=== PATIENT | male | born 1935 | race Two or more races ===

== ENCOUNTER 2018-01-15 09:13 | Day surgery (SDC) | payer MEDICARE, OTHER ==
--- NOTE | 2018-01-11 16:06 | Pre-Procedure Note/Attestation ---
Pre-Procedure Note/Attestation Complete Prior to Procedure Planned Procedure: right Procedure Narrative: 1. ANTERIOR VITRECTOMY, RIGHT EYE. 2.IOL EXCHANGE, RIGHT EYE. Indications for Procedure Pre-Operative Diagnosis: 1. VITREOUS PROLAPSE , RIGHT EYE. 2. IOL SUBLUXATION , RIGHT EYE. Attestation I attest that I discussed the nature of the procedure; its benefits; risks and complications; and alternatives (and the risks and benefits of such alternatives ), prior to the procedure, with the patient (or the patient's legal counter sales representative). I attest that, if there was a reasonable possibility of needing a blood transfusion, the patient (or the patient's legal counter sales representative) was given the [place] [employer] [facility] standardized written summary, pursuant to the Salazar Abdulaziz Blood Safety Act ([place] Health and Safety Code # 1645, as amended). I attest that I re-evaluated the patient just prior to the surgery and that there has been no change in the patient's H&P, except as documented below: Abhishek Whitt MD Jan 11, 2018 16:06
[2018-01-15] VITALS (9 sets, daily range): BP systolic 125–147; BP diastolic 71–87
[~2018-01-15] VITALS: Ht 182.9 cm; Wt 90.3 kg
[~2018-01-15 09:13] MED LIST: BSS 15ml BTL ONE; BSS 500ml btl ONE; Dexamethasone 4mg/ml vial ONE; EPINEPHrine 1mg/1ml Amp ONE; Lidocaine 1% MPF 10mg/ml 5ml ONE; Povidone-Iodine 5% opth solution ONE; Sodium Hyaluronate 10 mg/ml 0.85ml ONE; Tetracaine 0.5% Opth 4ml Soln ONE; acetaZOLAMIDE 125mg tab ORAL ONE
[2018-01-15] MEDS ORDERED: Diclofenac Sod 0.1% Op Soln ONE (09:23)
[2018-01-15] MEDS ORDERED: Phenylephrine 10% Opth Soln 5ml ONE (09:23)
[2018-01-15] MEDS ORDERED: Vigamox Opth Soln 3ml ONE (09:23)
[2018-01-15] MEDS ORDERED: Akten 3.5% 1ml Btl ONE (09:23)
[2018-01-15] MEDS ORDERED: Tropicamide 1% Opth 15ml Soln ONE (09:31)
[2018-01-15] MEDS: Diclofenac Sod 0.1% Op Soln RIGHT EYE SCH ×3 (09:35→10:04)
[2018-01-15] MEDS: Vigamox Opth Soln 3ml RIGHT EYE SCH ×3 (09:35→10:05)
[2018-01-15] MEDS: Tropicamide 1% Opth 15ml Soln RIGHT EYE SCH ×3 (09:35→10:04)
[2018-01-15] MEDS: Phenylephrine 10% Opth Soln 5ml RIGHT EYE SCH ×3 (09:35→10:04)
[2018-01-15] MEDS: Akten 3.5% 1ml Btl RIGHT EYE SCH ×3 (09:35→10:04)
[2018-01-15 10:04] LABS: BASOPHILS % (AUTO) 0.4 % (0.0-2.0); EOSINOPHILS % (AUTO) 0.4 % (0.0-3.0); HEMATOCRIT 34.4 % (42.0-52.0); LYMPHOCYTES % (AUTO) 29.4 % (20.0-45.0); MEAN CORPUSCULAR VOLUME 89 FL (80-99); MONOCYTES % (AUTO) 6.4 % (1.0-10.0); NEUTROPHILS % (AUTO) 63.4 % (45.0-75.0); PLATELET COUNT 147 K/UL (150-450); RED BLOOD COUNT 3.86 M/UL (4.70-6.10); RED CELL DISTRIBUTION WIDTH 14.7 % (11.6-14.8); WHITE BLOOD COUNT 13.8 K/UL (4.8-10.8)
[2018-01-15 10:06] LABS: ANION GAP 10 mmol/L (5-15); BLOOD UREA NITROGEN 85 mg/dL (7-18); CALCIUM 9.3 MG/DL (8.5-10.1); CARBON DIOXIDE 27 MMOL/L (21-32); CHLORIDE 104 MMOL/L (98-107); CREATININE 3.3 MG/DL (0.55-1.30); POTASSIUM 4.2 MMOL/L (3.5-5.1); SODIUM 141 MMOL/L (136-145)
[2018-01-15] MEDS ORDERED: ATORVASTATIN CA40 MG ORAL (10:14)
[2018-01-15] MEDS ORDERED: ADALAT20 MG ORAL (10:14)
[2018-01-15] MEDS ORDERED: FUROSEMIDE40 MG ORAL (10:14)
[2018-01-15] MEDS ORDERED: LOSARTAN POTASS25 MG ORAL (10:14)
[2018-01-15] MEDS ORDERED: ALBUTEROL2.5 MG/3 M INH (10:14)
[2018-01-15] MEDS ORDERED: CARVEDILOL3.125 MG ORAL (10:14)
[2018-01-15] MEDS ORDERED: RENA-VITE TABL0.8 M1 PO (10:14)
[2018-01-15] MEDS ORDERED: TRAZODONE HCL100 MG ORAL (10:14)
[2018-01-15] MEDS ORDERED: TAMSULOSIN HCL0.4 MG ORAL (10:14)
--- NOTE | 2018-01-15 10:15 | Anethesia Preoperative Eval ---
Anesthesia Pre-op PMH/ROS General Date of Evaluation: Jan 15, 2018 Time of Evaluation: 10:40 Anesthesiologist: ASA Score: ASA 4 Mallampati Score Class I : Soft palate, uvula, fauces, pillars visible Class II: Soft palate, uvula, fauces visible Class III: Soft palate, base of uvula visible Class IV: Only hard plate visible Mallampati Classification: Class III Surgeon: stormy Allergies: Coded Allergies: No Known Allergies (Unverified , 01/11/18) Past Medical History Cardiovascular: Reports: HTN, DE, other - chf; Denies: CAD, valve dz, arrhythmia Pulmonary: Reports: COPD; Denies: asthma, EDISON, other Gastrointestinal/Genitourinary: Reports: CRI, ESRD Endocrine: Reports: DM HEENT: Reports: cataract (L), cataract (R) Hematology/Immune: Reports: anemia; Denies: DVT, bleeding disorder, other Other: obesity Anesthesia Pre-op Phys. Exam Physician Exam Last Vital Signs Date Time Temp Pulse Resp B/P (MAP) Pulse Ox O2 Delivery O2 Flow Rate FiO2 01/15/18 09:40 97.6 78 18 143/81 (101) 96 97.6 Constitutional: NAD Cardiovascular: RRR Respiratory: CTA Gastrointestinal: S/NT/ND Airway Exam Mallampati Score: Class III MO: full ROM: full Teeth: missing Dentures: no upper, no lower Anesthesia Pre-op A/P Labs Hematology Test 01/15/18 09:45 White Blood Count 13.8 K/UL (4.8-10.8) H Red Blood Count 3.86 M/UL (4.70-6.10) L Hemoglobin 11.0 G/DL (14.2-18.0) L Hematocrit 34.4 % (42.0-52.0) L Mean Corpuscular Volume 89 FL (80-99) Mean Corpuscular Hemoglobin 28.6 PG (27.0-31.0) Mean Corpuscular Hemoglobin Concent 32.1 G/DL (32.0-36.0) Red Cell Distribution Width 14.7 % (11.6-14.8) Platelet Count 147 K/UL (150-450) L Mean Platelet Volume 7.2 FL (6.5-10.1) Neutrophils (%) (Auto) 63.4 % (45.0-75.0) Lymphocytes (%) (Auto) 29.4 % (20.0-45.0) Monocytes (%) (Auto) 6.4 % (1.0-10.0) Eosinophils (%) (Auto) 0.4 % (0.0-3.0) Basophils (%) (Auto) 0.4 % (0.0-2.0) Chemistry Test 01/15/18 09:45 Sodium Level 141 MMOL/L (136-145) Potassium Level 4.2 MMOL/L (3.5-5.1) Chloride Level 104 MMOL/L (98-107) Carbon Dioxide Level 27 MMOL/L (21-32) Anion Gap 10 mmol/L (5-15) Blood Urea Nitrogen 85 mg/dL (7-18) H Creatinine 3.3 MG/DL (0.55-1.30) H Estimat Glomerular Filtration Rate mL/min (>60) Glucose Level 115 MG/DL (74-106) H Calcium Level 9.3 MG/DL (8.5-10.1) Risk Assessment & Plan Assessment: asa 4 Plan: MAC Status Change Before Surgery: No Pre-Antibiotics Drug: none Jocelyne Stewart M.D. Jan 15, 2018 10:15
[2018-01-15] MEDS ORDERED: IPRATROPIU0.2 MG/1 M HHN (10:21)
[2018-01-15] MEDS ORDERED: PREDNISONE20 MG ORAL (10:21)
[2018-01-15] MEDS ORDERED: Midazolam 2mg/2ml Inj ONE (10:25)
[2018-01-15] MEDS ORDERED: fentaNYL 100 mcg/2 mL IV ONE (10:26)
[2018-01-15] MEDS ORDERED: LR 1000ml ONE (11:00)
--- NOTE | 2018-01-15 11:19 | Discharge Summary ---
Discharge Summary Discharge Summary Discharge Summary DATE OF ADMISSION: 01/15/2018 DATE OF DISCHARGE: 01/15/2018 REASON FOR HOSPITALIZATION: 1- Vitreous prolaps, right eye 2- Dislocated IOL SURGERY PERFORMED: 1- Anterior vitrectomy 2- IOL repositioning, right eye CONDITION IN THE HOSPITAL:The patient tolerated the surgery without complications. DISCHARGE CONDITION: The patient was stable at discharge. DISCHARGE MEDICATIONS: 1. Vigamox eye drops one drop q.i.d, OD 2. Prednisolone one drop q.i.d, Od 3. Prolensa 1 drop qd ,OD POSTOPERATIVE ORDERS: The patient has to rest at home. No bending, No lifting, No watching Television tonight. POSTOPERATIVE FOLLOW UP: The patient will be followed in my office tomorrow morning at 7 o'clock. Abhishek Whitt MD Jan 15, 2018 11:19
[2018-01-15] MEDS ORDERED: LR 1000ml 1,000 ML IVLG SCH (11:23)
--- NOTE | 2018-01-15 11:24 | Brief Operative Note ---
Immediate Post Operative Note Operative Note Chief Complaint: Doble vision, difficulty driving and reading, right eye Pre-op Diagnosis: 1. VITREOUS PROLAPSE , RIGHT EYE. 2. IOL SUBLUXATION , RIGHT EYE. Procedure: 1- Anterior vitrectomy, right ey2- Anterior synachiotomy, right eye 3- IOL repositioning Post-op Diagnosis: same as pre-op Surgeon: Abhishek Whitt MD Clinical Informatics Spec: None Additional Surgeons: None Anesthesiologist: DR. Stewart Anesthesia: MAC Specimen: none Complications: none Condition: stable Fluids: 500ml Estimated Blood Loss: none Drains: none Implant(s) used?: Yes - The previous IOL was dislocated. After anterior vitrectomy the implant was securely repositioned Abhishek Whitt MD Jan 15, 2018 11:24
[2018-01-15] MEDS ORDERED: DiphenhydrAMINE 50mg/ml Inj IVP PRN (11:30)
[2018-01-15] MEDS ORDERED: fentaNYL 100 mcg/2 mL IV PRN (11:30)
--- NOTE | 2018-01-15 11:33 | Immediate Post-Op Evaluation ---
Immediate Post-Op Evalulation Immediate Post-Op Evalulation Procedure: right eye vitrectomy and lens repositioning Date of Evaluation: Jan 15, 2018 Time of Evaluation: 11:14 IV Fluids: LR 50ml Blood Products: 0 Estimated Blood Loss: 0 Urinary Output: 0 Blood Pressure Systolic: 131 Blood Pressure Diastolic: 88 Pulse Rate: 82 Respiratory Rate: 17 O2 Sat by Pulse Oximetry: 92 Temperature (Fahrenheit): 97.3 Pain Score (1-10): 0 Nausea: No Vomiting: No Complications none Patient Status: awake, patent, none Hydration Status: adequate Drug: none Jocelyne Stewart M.D. Jan 15, 2018 11:33
[2018-01-15] MEDS ORDERED: acetaZOLAMIDE 125mg tab ONE (12:09)
--- NOTE | 2018-01-15 15:00 | Pre-op HX & Phy Repo 2 SIG ---
DATE OF ADMISSION: 01/15/2018 PRESURGICAL INTERNAL MEDICINE HISTORY AND PHYSICAL DATE OF EVALUATION: 01/15/2018 REASON FOR EVALUATION: I was asked by Dr. Abhishek Whitt to see this 82-year-old male who is going for elective surgery on the right eye. The patient has intraocular lens subluxation of right eye and vitreous prolapse of right eye. Please see full Ophthalmology History and Physical by Dr. Abhishek Whitt. The patient was evaluated. Chart was reviewed. The patient is a resident of [facility] in [facility]. Information of his chest x-ray and respiratory function plus laboratory work obtained through the medical records. PAST MEDICAL HISTORY: The patient is an 82-year-old male with past medical history remarkable for insulin-dependent diabetes mellitus, congestive heart failure, coronary heart disease and one stent placed in coronary artery 20 years ago. The patient has history of OR, history of COPD, endstage renal disease on dialysis, history of anemia. No hepatitis. No GI bleeding. PAST SURGICAL HISTORY: Appendectomy many years ago and cataract, right eye 12 years ago. FAMILY HISTORY: Mother from 03:03__ stroke. Father, unknown. ALLERGIES: Not known. PRESENT MEDICATIONS: Include prednisone 30 mg, Lasix, albuterol inhaler, baby aspirin, vitamin D, Nephro-Do, atorvastatin, Flomax, Breo inhaler, Pepcid 20 mg twice a day, 03:49 inhaler, nifedipine, and losartan. HABITS: The patient smokes five to six cigarettes a day. Used to be one pack a day for more than 60 years. No alcohol or street drugs. PHYSICAL EXAMINATION: GENERAL: The patient is alert. VITAL SIGNS: Six feet tall, weight 199 pounds, BMI is 27. Blood pressure 143/87, pulse 78, O2 saturation 96% on room air. The patient uses oxygen at 05:17 Hospital p.r.n. basis. SKIN: Clear and warm. LYMPHATICS: No lymph node enlargement. No rashes or ulceration. HEENT: Head, normocephalic. Ears, clear. Eyes, full description per Dr. Abhishek Whitt. Mouth, dry, whitish mucus on the tongue. Wear dentures, upper and lower. NECK: No jugular venous distention. Carotids artery +2. Trachea midline. CHEST: No deformity or asymmetry. LUNGS: Diminished lung sounds. No rales or rhonchi. No wheezing. HEART: Heart sound distant. Regular with PVCs. No murmur. No S3 or S4. ABDOMEN: Soft, benign. Liver and spleen not enlarged. No rebound. EXTREMITIES: There is +1 ankle edema. No varicose vein. No calf tenderness. GENITOURINARY TRACT: Benign prostatic hypertrophy, polyuria, frequency, and urgency. Endstage renal disease 06:54__. NERVOUS SYSTEM: No tremor. No nystagmus. No asymmetry. DIAGNOSTIC DATA: EKG, sinus rhythm with ectopy, old myocardial infarction. 07:11___bundle-branch block. Atrial fibrillation. Left ventricular hypertrophy. Old inferior and lateral OR. Fasting blood sugar this morning 110. The patient's last p.o. intake 10 p.m. yesterday. IMPRESSION: 1. Intraocular lens subluxation, right eye. 2. Vitreous prolapse, right eye. 3. Atherosclerotic heart disease. 4. Congestive heart failure secondary to OR, endstage renal disease, and hypertension. 5. Endstage renal disease. 6. 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 7. Insulin-dependent diabetes mellitus. 8. Atrial fibrillation, chronic. 9. COPD. 10. PVC, left ventricular hypertrophy. 11. Benign prostatic hypertrophy. PLAN: Intraocular lens exchange, 09:58__ vitrectomy, right eye per Dr. Abhishek Whitt. CONCLUSION: The patient is an 82-year-old male who has multiple medical problems to include hypertension, insulin-dependent diabetes mellitus, coronary heart disease, and COPD. The patient has atrial fibrillation and endstage renal disease. The patient's vital signs are stable, and O2 saturation 96%. The patient is mildly anemic with the hemoglobin of 9.6. The patient's creatinine 3.0. ECG, atrial fibrillation, ectopy and left ventricular hypertrophy. The patient also has old anterior inferior wall OR. The patient is asymptomatic, able to walk two flight of stairs. The patient's sugar this morning 110. The patient did not eat or drink from 10 p.m. yesterday. The patient's condition is optimized for surgery. Thank you very much, Dr. Whitt, for privilege to participate in presurgical care of this interesting patient. Ascencion Brewster M.D. DR: MORGAN JOB#: [id number] CC:
--- NOTE | 2018-01-16 | Operative Note - Dictated ---
DATE OF OPERATION: 01/15/2018 FACILITY: [facility] SURGEON: Abhishek Whitt M.D. ADOBE CQ DEVELOPER: None. ANESTHESIOLOGIST: Jocelyne Stewart M.D. ANESTHESIA: Monitored anesthesia care (MAC). PREOPERATIVE DIAGNOSES: 1. Vitreous prolapse into the anterior chamber. 2. Dislocated intraocular lens in the right eye. POSTOPERATIVE DIAGNOSES: 1. Iris prolapse. 2. Intraocular lens implantation. 3. Anterior synechiae. SURGERY PERFORMED: 1. Anterior synechiotomy. 2. Anterior vitrectomy. 3. IOL repositioning in the right eye. INDICATION FOR SURGERY: The patient is an 82-year-old gentleman with multiple medical problems including coronary artery disease, congestive heart failure, COPD, hypertension, hypercholesterolemia, BPH, coronary artery disease. He is a smoker and he is a drinker. He is not allergic to any medications. He has had cataract surgery in both eyes five years ago. He started having problems in vision in the right eye since 2016 and gradually his vision in the right eye got worse and now he has diplopia and blurred vision in the right eye. The patient is taking a lot of medication including albuterol, aspirin, atorvastatin, vitamin D3, Colace, famotidine, losartan, nifedipine, furosemide, Flomax, isosorbide, and prednisone 20 mg. He has as I mentioned multiple organ problems. On examination of the right eye, the cornea is clear. Anterior chamber is deep. The intraocular lens is displaced towards the 6 o'clock of the anterior chamber and just one-third of the lens is on the frontal aspect of the patient's pupil and there is anterior synechiae with vitreous prolapse. Funduscopy shows normal optic disc, normal macula, and peripheral retina is flat. To improve his vision, the anterior synechiae should be removed. Anterior vitrectomy has to be done and displaced intraocular lens has to be repositioned. INFORMED CONSENT: The nature of the surgery, risks, benefits, alternatives and potential complications were explained in detail to the patient. The potential complications including, but not limited to bleeding, infection, posterior capsular rupture, lens subluxation, flat anterior chamber, iris prolapse, uveitis, corneal edema, macular edema, endophthalmitis, retinal detachment, loss of vision, and even loss of the eye were all explained in detail to the patient. The patient voiced understanding and accepted all the complications. The alternatives including repositioning of the lens is the only alternative for this patient post removal of the IOL and IOL exchange and anterior vitrectomy and anterior synechiotomy. The patient elected to have anterior vitrectomy, anterior synechiotomy, and IOL repositioning. Then, he signed a consent form, which is in the chart. DESCRIPTION OF SURGERY AND FINDINGS: Following that, the patient was taken to the operation room in a stable condition. Lidocaine gel Akten 3.5% was applied to the conjunctiva of the right eye. IV sedation was given by the anesthesiologist, Dr. Stewart. After adequate anesthesia and sedation had been achieved, the right eye was prepped and draped in usual sterile fashion for intraocular surgery. Following that, a speculum was placed in the right eye. Following that, with a SuperSharp knife, a clear corneal side port was created. A 1% lidocaine without preservative (MPF) was injected into the anterior chamber. Viscoelastic agent, Healon was injected into the anterior chamber. Following that, using a 2.8 mm keratome, a clear corneal temporal keratotomy was performed. Following that, using a Sinskey hook, the anterior keratotomy was performed and the iris was from the posterior part of the cornea. The anterior chamber was . Viscoelastic was injected into the anterior chamber and posterior chamber. Following that, using automated vitrectome or Accutome, the anterior vitrectomy was performed and the vitreous was removed from the anterior chamber. Following that, the intraocular lens was moved from the anterior chamber to the middle of the pupil. Following that, the optic part of the lens was moved towards the posterior chamber in the back of the capsulorrhexis and the lens was captured by the capsulorrhexis. Now, the lens is in the center of the pupil and the optic is captured by the capsulorrhexis and the haptics of the lens are in the . Following that, the viscoelastic agent was removed from the anterior posterior part of the lens. Following that, the anterior chamber was filled with balanced salt solution and the wound was hydrated with balanced salt solution. The wound was checked for leakage, and there was no leakage. The patient tolerated the surgery without complications. At the end of the surgery, Vigamox eye drops were applied to the conjunctiva of the right eye. The eye was patched with clear, sterile fenestrated shield. Following that, the patient was transferred to the recovery room. In the recovery room, 125 mg of Diamox was given by mouth stat. Postoperative orders and directions were given to the patient. The patient will be discharged home on the above-mentioned medications. The patient will be followed in my office tomorrow morning. Abhishek Whitt M.D. DR: RUSSELL JOB#: [id number] CC:
--- NOTE | 2018-01-17 17:40 | Cardiology Report ---
APPROVED REPORT EKG Measurement Heart [id number] Suspect arm lead reversal, interpretation assumes no reversal Atrial fibrillation with premature ventricular or aberrantly conducted complexes Left ventricular hypertrophy with QRS widening Lateral infarct, age undetermined Inferior infarct, age undetermined Abnormal ECG
== END 2018-01-15 13:25 | disposition home or self-care (01) ==
LOC: SUR 09:13
DX: T85.22XA Displacement of intraocular lens, initial encounter (principal); Y83.8 Other surgical procedures as the cause of abnormal reaction of the patient, or of later complication, without mention of misadventure at the time of the procedure; Y92.009 Unspecified place in unspecified non-institutional (private) residence as the place of occurrence of the external cause; H21.89 Other specified disorders of iris and ciliary body; H21.511 Anterior synechiae (iris), right eye; E10.22 Type 1 diabetes mellitus with diabetic chronic kidney disease; I13.2 Hypertensive heart and chronic kidney disease with heart failure and with stage 5 chronic kidney disease, or end stage renal disease; I50.9 Heart failure, unspecified; N18.6 End stage renal disease; F17.210 Nicotine dependence, cigarettes, uncomplicated; Z99.2 Dependence on renal dialysis; D63.1 Anemia in chronic kidney disease; I25.10 Atherosclerotic heart disease of native coronary artery without angina pectoris; Z95.5 Presence of coronary angioplasty implant and graft; I25.2 Old myocardial infarction; J44.9 Chronic obstructive pulmonary disease, unspecified; I48.2 Chronic atrial fibrillation; I49.3 Ventricular premature depolarization; N40.0 Benign prostatic hyperplasia without lower urinary tract symptoms; Z79.82 Long term (current) use of aspirin; Z90.49 Acquired absence of other specified parts of digestive tract
CPT/HCPCS: 36415; 65870; 66825; 67005; 80048; 82962; 85025; 93005; J0171; J1100; J2250; J3010; J7120; 94003; 94150